=== PATIENT | male | born 1955 | race Caucasian/White ===

== ENCOUNTER 2016-06-28 03:18 | Inpatient (IN) | payer BC, OTHER ==
[2016-06-28] VITALS (16 sets, daily range): BP systolic 87–146; BP diastolic 57–100; PULSE 88–107; RESP 16–22; TEMP 94.6–98.2; O2SAT 95–100
[~2016-06-28] VITALS: Ht 177.8 cm; Wt 88.6 kg
[2016-06-28] MEDS ORDERED: SODIUM CHLOR 0.9% 1000 ML INJ 1,000 ML IV SCH ×2 (03:26→08:03)
[2016-06-28] MEDS ORDERED: SUCCINYLCHOLINE CHLORIDE 200 MG/10 ML VIAL IVP ONE (03:30)
[2016-06-28] MEDS ORDERED: NALOXONE HCL 2 MG/2 ML VIAL IV ONE (03:30)
[2016-06-28] MEDS ORDERED: SODIUM CHLORIDE 0.9% FLUSH 5 ML FLUSH IVF PRN (03:30)
[2016-06-28] MEDS ORDERED: ETOMIDATE 20 MG/10 ML VIAL IVP ONE (03:30)
--- NOTE | 2016-06-28 03:33 | PD ---
HPI Chief Complaint: altered mental status Time Seen by Provider: 03:26 Travel History International Travel<30 days: No Contact w/Intl Traveler<30days: No Traveled to known affect area: No (travel history is unable to be obtained as the patient is unresponsive) History of Present Illness HPI The patient is a 61 year old male who presents to the [facility] emergency department with a history of being found on the side of the road with a GCS of 3. The patient was unresponsive to any type of stimulation. The patient's O2 saturations on room air were 82-83%. The patient had a blood sugar of 131 prior to arrival. The patient's blood pressure was a systolic in the 130s. The patient's respiratory rate was in the mid 20s. The patient's O2 saturation in route to this facility on a nonrebreather mask when up to 98-99%. The patient continues to be unresponsive. IV access was not able to be obtained prior to arrival. The patient was noted to have unequal pupils with a right pupil larger than the left. The patient had no other visible signs of trauma. The patient had an odor of alcohol noted. The patient is unable to provide any other history. [facility] Past Medical History Narrative Medical The patient's electronic medical record was reviewed for his history, however unfortunately, the patient has never been to this facility previously. Past Surgical History Narrative Surgical The patient's past surgical history is unknown. Social History Narrative Social History The patient's social history is unknown. Tobacco Use: No Allergies-Medications (Allergen,Severity, Reaction): Coded Allergies: UNOBTAINABLE (Unverified , 06/28/16) Reported Meds & Prescriptions Reported Meds & Active Scripts Active Active Prescriptions or Reported Medications Unobtainable Narrative Medication The patient's medication history is unknown. Review of Systems ROS Limitations: Unresponsive Neurologic: Positive: Change in Mentation Physical Exam Narrative General: The patient is a well-developed well-nourished male, unresponsive on arrival. The patient is breathing on his own although otherwise he is unresponsive to any stimulation. Head and Neck exam: Head is normocephalic atraumatic. Eyes: The patient's right pupil is proximal a 6 mm, the left pupil is approximately 3 mm. They're both reactive to light. Nose: Midline septum with pink mucous membranes Mouth: Dentition unremarkable. Tacky mucus membranes. Posterior oropharynx is not erythematous. No tonsillar hypertrophy. Uvula midline. Airway patent. Neck: No palpable lymphadenopathy. No nuchal rigidity. No thyromegaly. Cardiovascular: Sinus tachycardia in the low 100s without murmurs, gallops, or rubs. No pulse deficit to the extremities on simultaneous auscultation and palpation of his radial artery. Lungs: Clear to auscultation bilaterally. No wheezes, rhonchi, or rales. Abdomen: Soft, without tenderness to palpation in all 4 quadrants of the abdomen. No guarding, rebound, or rigidity. Normal bowel sounds are audible. Extremities: No clubbing, cyanosis, or edema. 2+ pulses in all 4 extremities. Back: No spinous process tenderness to palpation. No costovertebral angle tenderness to palpation. Neurologic Exam: The patient arrives with a GCS of 3. The patient is unresponsive to any type of stimulation. Skin Exam: No rash noted. Intact skin that is warm and dry. Data Data Last Documented VS Vital Signs Date Time Temp Pulse Resp B/P Pulse Ox O2 Delivery O2 Flow Rate FiO2 06/28/16 06:16 88 16 87/57 96 Ventilator 06/28/16 05:00 96.3 06/28/16 04:27 50 Orders Electrocardiogram (06/28/16 03:26) Alcohol (Ethanol) (06/28/16 03:26) Ammonia (06/28/16 03:26) Complete Blood Count With Diff (06/28/16 03:26) Comprehensive Metabolic Panel (06/28/16 03:26) Creatine Kinase (Cpk) (06/28/16 03:26) Drug Screen, Random Urine (06/28/16 03:26) Prothrombin Time / Inr (Pt) (06/28/16 03:26) Act Partial Throm Time (Ptt) (06/28/16 03:26) Salicylates (Aspirin) (06/28/16 03:26) Troponin I (06/28/16 03:26) Tylenol (Acetaminophen) (06/28/16 03:26) Thyroid Stimulating Hormone (06/28/16 03:26) Urinalysis - C+S If Indicated (06/28/16 03:26) Arterial Blood Gas (Abg) (06/28/16 03:26) Ct Brain W/O Iv Contrast(Rout) (06/28/16 03:26) Blood Glucose (06/28/16 03:26) Ecg Monitoring (06/28/16 03:26) Iv Access Insert/Monitor (06/28/16 03:26) Oximetry (06/28/16 03:26) Naloxone Inj (Narcan Inj) (06/28/16 03:30) Sodium Chloride 0.9% Flush (Ns Flush) (06/28/16 03:30) Sodium Chlor 0.9% 1000 Ml Inj (Ns 1000 M (06/28/16 03:26) Ct Cerv Spine W/O Contrast (06/28/16 ) Chest, Single Ap (06/28/16 03:29) Ng Gastric Tube Insert/Monitor (06/28/16 03:29) Urinary Catheter Insert/Apply (06/28/16 03:29) Etomidate Inj (Amidate Inj) (06/28/16 03:30) Succinylcholine Inj (Quelicin Inj) (06/28/16 03:30) Etomidate Inj (Amidate Inj) (06/28/16 03:53) Urine Culture (06/28/16 03:40) Propofol 1000 Mg/100 Ml Inj (Diprivan 10 (06/28/16 04:15) ^ Infusion (06/28/16 04:08) RASS (06/28/16 04:08) Neurological Rass Scale SARINA.Q2H (06/28/16 04:08) Propofol 1000 Mg/100 Ml Inj (Diprivan 10 (06/28/16 04:08) Cta Thor Abd Aorta W Iv C W3d (06/28/16 ) Lactic Acid Sepsis Protocol (06/28/16 04:48) Blood Culture (06/28/16 04:48) Vancomycin Inj (Vancomycin Inj) (06/28/16 05:00) Piperacil-Tazo 3.375 Gm Premix (Zosyn 3. (06/28/16 05:00) Sodium Chlor 0.9% 1000 Ml Inj (Ns 1000 M (06/28/16 05:00) Sodium Chlor 0.9% 1000 Ml Inj (Ns 1000 M (06/28/16 06:15) Resp Ventilation- Pressure (06/28/16 ) Resp Ventilation- Pressure (06/28/16 ) Admit Order (Ed Use Only) (06/28/16 06:19) Labs Laboratory Tests Test 06/28/16 06/28/16 06/28/16 06/28/16 03:40 03:50 04:30 05:10 White Blood Count 20.0 TH/MM3 Red Blood Count 4.80 MIL/MM3 Hemoglobin 15.2 GM/DL Hematocrit 45.7 % Mean Corpuscular Volume 95.3 FL Mean Corpuscular Hemoglobin 31.6 PG Mean Corpuscular Hemoglobin 33.2 % Concent Red Cell Distribution Width 13.9 % Platelet Count 312 TH/MM3 Mean Platelet Volume 7.9 FL Neutrophils (%) (Auto) 58.3 % Lymphocytes (%) (Auto) 31.2 % Monocytes (%) (Auto) 8.0 % Eosinophils (%) (Auto) 2.2 % Basophils (%) (Auto) 0.3 % Neutrophils # (Auto) 11.7 TH/MM3 Lymphocytes # (Auto) 6.2 TH/MM3 Monocytes # (Auto) 1.6 TH/MM3 Eosinophils # (Auto) 0.4 TH/MM3 Basophils # (Auto) 0.1 TH/MM3 CBC Comment AUTO DIFF Differential Total Cells 100 Counted Neutrophils % (Manual) 57 % Band Neutrophils % 3 % Lymphocytes % 31 % Monocytes % 4 % Eosinophils % 5 % Neutrophils # (Manual) 12.0 TH/MM3 Differential Comment FINAL DIFF MANUAL Atypical Lymphocytes % Platelet Estimate NORMAL Platelet Morphology Comment NORMAL Acanthocytes OCC Keratocytes OCC Prothrombin Time 10.0 SEC Prothromb Time International 0.9 RATIO Ratio Activated Partial 27.5 SEC Thromboplast Time Urine Color LIGHT-YELLOW Urine Turbidity CLEAR Urine pH 5.0 Urine Specific [place] 1.007 Urine Protein NEG mg/dL Urine Glucose (UA) NEG mg/dL Urine Ketones NEG mg/dL Urine Occult Blood NEG Urine Nitrite NEG Urine Bilirubin NEG Urine Urobilinogen LESS THAN 2.0 MG/DL Urine Leukocyte Esterase NEG Urine RBC 1 /hpf Urine WBC LESS THAN 1 /hpf Urine Bacteria RARE /hpf Urine Mucus FEW /lpf Microscopic Urinalysis Comment CATH-CULTURE IND Sodium Level 140 MEQ/L Potassium Level 3.5 MEQ/L Chloride Level 107 MEQ/L Carbon Dioxide Level 20.9 MEQ/L Anion Gap 12 MEQ/L Blood Urea Nitrogen 20 MG/DL Creatinine 0.90 MG/DL Estimat Glomerular Filtration 86 ML/MIN Rate Random Glucose 129 MG/DL Calcium Level 8.2 MG/DL Total Bilirubin 0.2 MG/DL Aspartate Amino Transf 21 U/L (AST/SGOT) Alanine Aminotransferase 39 U/L (ALT/SGPT) Alkaline Phosphatase 127 U/L Total Creatine Kinase 151 U/L Troponin I LESS THAN 0.02 NG/ML Total Protein 8.2 GM/DL Albumin 4.0 GM/DL Thyroid Stimulating Hormone 2.250 uIU/ML 3rd Gen Salicylates Level 3.0 MG/DL Urine Opiates Screen NEG Acetaminophen Level LESS THAN 2.0 MCG/ML Urine Barbiturates Screen NEG Urine Amphetamines Screen NEG Urine Benzodiazepines Screen NEG Urine Cocaine Screen NEG Urine Cannabinoids Screen POS Ethyl Alcohol Level 363 MG/DL Ammonia 23 MCMOL/L Blood Gas Puncture Site RT RADIAL Blood Gas Patient Temperature 98.6 Blood Gas HCO3 21 mmol/L Blood Gas Base Excess -5.3 mmol/L Blood Gas Oxygen Saturation 94 % Arterial Blood pH 7.22 Arterial Blood Partial 53 mmHg Pressure CO2 Arterial Blood Partial 133 mmHG Pressure O2 Arterial Blood Oxygen Content 20.3 Vol % Arterial Blood 1.6 % Carboxyhemoglobin Arterial Blood Methemoglobin 1.9 % Blood Gas Hemoglobin 15.2 G/DL Oxygen Delivery Device VENTILATOR Blood Gas Ventilator Setting Blood Gas Inspired Oxygen 50 % Lactic Acid Level 2.7 mmol/L MDM Medical Decision Making Medical Screen Exam Complete: Yes Emergency Medical Condition: Yes Medical Record Reviewed: Yes Interpretation(s) Last Impressions Chest X-Ray 06/28/16328 Signed Impressions: Service Date/Time: Tuesday, June 28, 2016 04:20 - CONCLUSION: 1. Mild right base atelectasis. Otherwise clear lungs. 2. Appropriate position of the endotracheal tube and nasogastric tube. 3. Tortuous and mildly aneurysmal thoracic aorta. Levy Abbott MD Head CT 06/28/16 0326 Signed Impressions: Service Date/Time: Tuesday, June 28, 2016 03:37 - CONCLUSION: No acute intracranial abnormality demonstrated. Old lacunar infarct of the left basal ganglia. Levy Abbott MD Cervical Spine CT 06/28/16 0000 Signed Impressions: Service Date/Time: Tuesday, June 28, 2016 03:37 - CONCLUSION: 1. No fracture or subluxation of the cervical spine. 2. Degenerative changes at C5/ C6 and C6/C7 as above. 3. 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 Levy Abbott MD Differential Diagnosis Alcohol intoxication, versus postictal state from seizure, versus intracranial trauma, versus cervical spine trauma, versus other substance intoxication, versus metabolic encephalopathy Narrative Course During the course of the patients emergency department visit, the patients history, examination, and differential diagnosis were reviewed with the patient. The patient had IV access obtained and blood work sent for analysis. The patient was placed on a athletic monitor with oximetry and blood pressure monitoring. An EKG was ordered. The patient had a temperature sensing Sierra catheter placed to gravity. The patient's initial temperature was 95. The patient had a CT scan of the brain and CT scan of the C-spine ordered. The patient had an EKG done on arrival. The patient's EKG shows a sinus tachycardia rate of 101, no acute ST segment elevation is noted. QRS duration is 102 ms, QTC 421 ms. The patient was provided 1 L of warmed normal saline. Warm blankets were applied. The patient was given Narcan 2 mg IV. The patient had no response to this. As the patient remained unresponsive. The patient was prepped for RSI to protect his airway. The patient is noted to not have a gag reflex. The patients laboratory studies were reviewed and remarkable for a white count of 20, hemoglobin 15.2, platelets 312 with a normal differential, CMP is remarkable for CO2 of 20.9, BUN 20, GFR of 86, glucose 129, alkaline phosphatase 127, ammonia level XXIII, CPK and troponin I within normal limits, TSH 2.25, PT PTT unremarkable. Urinalysis is unremarkable. Salicylate is 3, acetaminophen less than 2, urine drug screen positive for cannabinoids. Radiology studies were reviewed and remarkable for a chest x-ray that shows a mild right basilar atelectasis, otherwise clear lungs, appropriate position of endotracheal tube in NG tube, tortuous a mildly aneurysmal thoracic aorta noted. CT scan of the brain shows no acute intracranial abnormality, old lacunar infarct in the left basal ganglia. CT scan of the C-spine shows no fracture or subluxation of the cervical spine, degenerative changes at C5-C6 and C6-C7. There is also apparent aneurysmal dilatation of the aortic arch. The patient will have a CT aortogram to further evaluate. The patient meets SIRS criteria, however there is no site or source for infection. I suspect that the patient's hypothermia is related to him being found down by the side of the road on a cold night. The patient will have a lactic acid added to his laboratory studies. The patient was intubated without any difficulty. The patient was placed on propofol for sedation. The patient's case was discussed with Dr. Frazier, the night supervisor who did agree to admit the patient for further evaluation and treatment at this time. The patients results were discussed with the patient, including the plan of care. I explained that further testing and/ or monitoring is indicated based on the patients history, examination, and/ or laboratory findings. Therefore, I recommended admission for additional evaluation. The patient expressed understanding and was agreeable with this plan. The patient was admitted to the hospital in guarded condition and sent to a bed under the care of the night supervisor. Critical Care Narrative Aggregate critical care time was 42 minutes. Time to perform other separately billable procedures was not included in the critical care time. My time did not include minutes spent treating any other patients simultaneously or on activities that did not directly contribute to the patient's treatment. The services I provided to this patient were to treat and/or prevent clinically significant deterioration that could result in: Aspiration, versus respiratory failure, versus hernia vascular collapse. I provided critical care services requiring my management, as noted below: Chart data review, documentation time, medication orders and management, vital sign assessments/reviewing monitor data, ordering and reviewing lab tests, ordering and interpreting/reviewing x-rays and diagnostic studies, care of the patient and discussion of the patient with the admitting physicians. Procedures Procedure Narrative After the risks and benefits were discussed the following procedure was performed: INTUBATION: The patient was put in optimal position for the procedure. Rapid sequence intubation was initiated by me using 20 milligrams of etomidate IV and 100 milligrams of succinyl choline IV. The patient was intubated using a size 4 Doreen blade with an 8 cuffed endotracheal tube. The patient's airway was not noted to be a difficult airway. Tube placement was confirmed by visualization of the tube and balloon passing through the cords, capnometry and subsequent chest x-ray. Breath sounds were equal and well aerated bilaterally postintubation. No breath sounds over stomach. Patient tolerated procedure well. Sepsis Criteria SIRS Criteria (2 or more): Temp > 100.9 or < 96.8, Heart rate over 90, WBC > 78483, < 4000 or > 10% bands Severe Sepsis (+one): Lactate >2 Physician Communication Physician Communication The patient's case was discussed with Dr. Frazier who did agree to admit the patient for continued evaluation and treatment at this time. Diagnosis Primary Impression: Altered mental status Qualified Code: R40.1 - Stupor Additional Impressions: Alcohol intoxication Qualified Code: F10.129 - Alcohol intoxication, with unspecified complication Leukocytosis Qualified Code: D72.829 - Leukocytosis, unspecified type Admitting Information Admitting Physician Requests: Admit Scripts Unable to Obtain Active Prescriptions or Reported Meds Karie Guzmán MD Jun 28, 2016 03:33
[2016-06-28] MEDS ORDERED: ETOMIDATE 40 MG/20 ML VIAL ONE (03:53)
[2016-06-28 04:00] LABS: AUTOMATED NEUTROPHIL # 11.7 TH/MM3 (1.8-7.7); BASOPHIL # 0.1 TH/MM3 (0-0.2); BASOPHIL % 0.3 % (0.0-2.0); EOSINOPHIL # 0.4 TH/MM3 (0-0.4); EOSINOPHIL % 2.2 % (0.0-4.0); HEMATOCRIT 45.7 % (39.0-51.0); LYMPH % 31.2 % (9.0-44.0); LYMPHOCYTE # 6.2 TH/MM3 (1.0-4.8); MEAN CELL VOLUME 95.3 FL (80.0-100.0); MEAN CORPUSCULAR HEMOGLOBIN 31.6 PG (27.0-34.0); MEAN CORPUSCULAR HGB CONC 33.2 % (32.0-36.0); NEUT % 58.3 % (16.0-70.0); PLATELET COUNT 312 TH/MM3 (150-450); RED CELL DISTRIBUTION WIDTH 13.9 % (11.6-17.2)
[2016-06-28 04:01] LABS: BACTERIA, URINE RARE /hpf; BLOOD, URINE NEG (NEG); GLUCOSE,URINE NEG (NEG); KETONE, URINE NEG (NEG); MUCUS URINE FEW /lpf (OCC); NITRITE,URINE NEG (NEG); URINE COLOR LIGHT-YELLOW (YELLW/STRAW)
[2016-06-28 04:02] LABS: COMMENT (UR) CATH-CULTURE IND; CULTURE IF INDICATED CATH CULTURE IND
[2016-06-28 04:03] LABS: AMPHETAMINE, URINE NEG (NEG); BARBITURATES, URINE NEG (NEG); COCAINE, URINE NEG (NEG)
[2016-06-28 04:04] LABS: APTT (PATIENT) 27.5 SEC (24.3-30.1); HEMO FLAGS AUTO DIFF; INTERNATIONAL NORMALIZED RATIO 0.9 RATIO
[2016-06-28] MEDS ORDERED: PROPOFOL 1000 MG/100 ML INJ 100 ML ONE (04:08)
--- NOTE | 2016-06-28 04:15 | RADRPT ---
EXAM DATE/TIME: 06/28/2016 03:37 [facility] COMPARISON: No previous studies available for comparison. INDICATIONS : Found unresponsive. RADIATION DOSE: 44.94 CTDIvol (mGy) MEDICAL HISTORY : Non-responsive. SURGICAL HISTORY : Non-responsive. ENCOUNTER: Initial ACUITY: 1 day PAIN SCALE: Non-responsive LOCATION: cranial TECHNIQUE: Multiple contiguous axial images were obtained of the head. Using automated exposure control and adj ustment of the mA and/or kV according to patient size, radiation dose was kept as low as reasonably a chievable to obtain optimal diagnostic quality images. FINDINGS: CEREBRUM: The ventricles are normal for age. No evidence of midline shift, mass lesion, hemorrhage or acute in farction. No extra-axial fluid collections are seen. There is an old 8 x 16 mm lacunar infarct of th e left basal ganglia. POSTERIOR FOSSA: The cerebellum and brainstem are intact. The 4th ventricle is midline. The cerebellopontine angle i s unremarkable. EXTRACRANIAL: The visualized portion of the orbits is intact. SKULL: The calvaria is intact. No evidence of skull fracture. CONCLUSION: No acute intracranial abnormality demonstrated. Old lacunar infarct of the left basal ganglia. Levy Abbott MD on June 28, 2016 at 4:13 Board Certified Radiologist. This report was verified electronically.
--- NOTE | 2016-06-28 04:20 | RADRPT ---
EXAM DATE/TIME: 06/28/2016 03:37 [facility] COMPARISON: No previous studies available for comparison. INDICATIONS : Found unresponsive. RADIATION DOSE: 21.41 CTDIvol (mGy) MEDICAL HISTORY : Non-responsive. SURGICAL HISTORY : Non-responsive. ENCOUNTER: Initial ACUITY: 1 day PAIN SCALE: Non-responsive LOCATION: neck TECHNIQUE: Volumetric scanning of the cervical spine was performed. Multiplanar reconstructions in the sagittal, coronal and oblique axial planes were performed. Using automated exposure control and adjustment o f the mA and/or kV according to patient size, radiation dose was kept as low as reasonably achievable to obtain optimal diagnostic quality images. FINDINGS: The cervical spine alignment is normal. Vertebral bodies have normal height. There is moderate to severe disc space narrowing with uncovertebral and facet osteoarthritis at C5/C6 and C6/C7 with right greater the left foraminal encroachment at both levels, especially C6 or C7.. S lightly milder changes are seen at C7/T1. No significant spinal stenosis demonstrated. Visualized portions of the lung apices are clear but the initial tree trimmer helper radiograph suggests aneurysmal enlargement of the thoracic aortic arch.. CONCLUSION: 1. No fracture or subluxation of the cervical spine. 2. Degenerative changes at C5/C6 and C6/C7 as above. 3. 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 Levy Abbott MD on June 28, 2016 at 4:15 Board Certified Radiologist. This report was verified electronically.
[2016-06-28] MEDS: PROPOFOL 1000 MG/100 ML INJ 100 ML IV SCH ×2 (04:22→08:13)
[2016-06-28 04:25] LABS: ALT (GPT) 39 U/L (12-78); ANION GAP 12 MEQ/L (5-15); AST (GOT) 21 U/L (15-37); BICARBONATE 20.9 MEQ/L (21.0-32.0); BLOOD UREA NITROGEN 20 MG/DL (7-18); CHLORIDE 107 MEQ/L (98-107); GLOMERULAR FILTRATION RATE 86 ML/MIN (>89); POTASSIUM 3.5 MEQ/L (3.5-5.1); SODIUM (NA) 140 MEQ/L (136-145)
--- NOTE | 2016-06-28 04:29 | RADRPT ---
EXAM DATE/TIME: 06/28/2016 04:20 [facility] COMPARISON: No previous studies available for comparison. INDICATIONS : Post intubation. MEDICAL HISTORY : Unobtainable. SURGICAL HISTORY : Unobtainable. ENCOUNTER: Initial ACUITY: 1 day PAIN SCORE: Non-responsive. LOCATION: Bilateral chest FINDINGS: There is trace atelectasis of the right base. Lungs are otherwise clear. No pleural effusion. No pneu mothorax. Heart size within normal limits. Thoracic aorta is tortuous and with slight aneurysmal enlargement of the aortic arch. Endotracheal tube tip is about 4 cm above the ildefonso. There is a nasogastric tube coursing into the s tomach. CONCLUSION: 1. Mild right base atelectasis. Otherwise clear lungs. 2. Appropriate position of the endotracheal tube and nasogastric tube. 3. Tortuous and mildly aneurysmal thoracic aorta. Levy Abbott MD on June 28, 2016 at 4:27 Board Certified Radiologist. This report was verified electronically.
[2016-06-28 04:34] LABS: ALKALINE PHOSPHATASE 127 U/L (45-117); CREATINE KINASE 151 U/L (39-308); TOTAL BILIRUBIN ADULT 0.2 MG/DL (0.2-1.0)
[2016-06-28 04:36] LABS: ACETAMINOPHEN LESS THAN 2.0 MCG/ML (10.0-30.0)
[2016-06-28 04:49] LABS: BANDS 3 % (0-6); EOSINOPHILS 5 % (0-4); POLYS (SEG NEUTROPHILS) 57 % (16-70); SCAN/DIFF FINAL DIFF MANUAL; WBC DIFF SAMPLE 100
[2016-06-28 04:50] LABS: ACANTHOCYTES OCC (NORMAL); KERATOCYTES OCC (NORMAL); PLATELET ESTIMATE SMEAR NORMAL (NORMAL); PLATELET MORPHOLOGY NORMAL (NORMAL)
[2016-06-28] MEDS ORDERED: SODIUM CHLOR 0.9% 1000 ML INJ 1,000 ML IV ONE ×2 (05:00→06:15)
[2016-06-28] MEDS ORDERED: PIPERACIL-TAZO 3.375 GM PREMIX 50 ML IV ONE (05:00)
[2016-06-28] MEDS ORDERED: VANCOMYCIN INJ 1,000 MG in SODIUM CHLOR 0.9% 250 ML INJ 250 ML IV ONE (05:00)
[2016-06-28 05:34] LABS: BLOOD GAS BASE EXCESS -5.3 mmol/L (-2-2); BLOOD GAS CARBOXYHEMOGLOBIN 1.6 % (0-4); BLOOD GAS HCO3 21 mmol/L (22-26); BLOOD GAS METHEMOGLOBIN 1.9 % (0-2); BLOOD GAS O2 HGB SATURATION 94 % (90-100); BLOOD GAS OXYGEN CONTENT 20.3 Vol % (12.0-20.0); BLOOD GAS PCO2 53 mmHg (38-42); BLOOD GAS PO2 133 mmHG (61-120); BLOOD GAS TOTAL HGB 15.2 G/DL (12.0-16.0); CRITICAL VALUE YES; OXYGEN DEVICE VENTILATOR; TEMP CORR TO 98.6
[2016-06-28 05:35] LABS: DRAW SITE RT RADIAL; FIO2 50 %; NUMBER OF ARTERIAL PUNCTURES 1; STAT YES; ULNAR PULSE PRESENT
[2016-06-28 07:14] LABS: LACTIC ACID GHOST NOT REPORTABLE
[2016-06-28] MEDS ORDERED: IOHEXOL 350 MG/ML 10 ML VIAL (for RAD DIAG) IV ONE (07:53)
[2016-06-28] MEDS ORDERED: ACETAMINOPHEN 325 MG TAB PO PRN (08:15)
[2016-06-28] MEDS ORDERED: RESP: ALBUTEROL 2.5 MG/IPRATROPIUM 0.5 MG NEB (PRN) INH (08:15)
[2016-06-28] MEDS ORDERED: SENNOSIDES 8.6 MG TAB PO PRN (08:15)
[2016-06-28] MEDS ORDERED: MISCELLANEOUS NURSING INFORMATION XX SCH (08:15)
[2016-06-28] MEDS ORDERED: SODIUM CHLORIDE 0.9% FLUSH 5 ML FLUSH IV FLUSH PRN (08:15)
[2016-06-28] MEDS ORDERED: ONDANSETRON HCL 4 MG/2 ML VIAL IV PRN (08:15)
[2016-06-28] MEDS ORDERED: PROPOFOL 1000 MG/100 ML INJ 100 ML IV SCH (08:15)
[2016-06-28] MEDS ORDERED: CHLORHEXIDINE GLUCONATE 2 % 1 PACK (2 CLOTHS) TOP PRN (08:15)
[2016-06-28] MEDS ORDERED: fentaNYL DRIP 250 ML IV SCH ×2 (08:15→17:00)
--- NOTE | 2016-06-28 08:17 | HHI.HP ---
[facility] Service Critical Care Medicine Primary Care Physician Unknown Admission Diagnosis AMS, Alcohol intoxication, hypothermia Diagnosis: (1) Acute respiratory failure Diagnosis: Principal (2) Leukocytosis Diagnosis: Principal (3) Alcohol intoxication Diagnosis: Principal (4) Altered mental status Diagnosis: Principal (5) Hypothermia, initial encounter Diagnosis: Principal (6) Degenerative disc disease, cervical Diagnosis: Principal (7) History of CVA (cerebrovascular accident) Diagnosis: Principal (8) Lactic acidosis Diagnosis: Principal (9) Tetrahydrocannabinol (THC) use disorder, mild, abuse Diagnosis: Principal Chief Complaint: Unresponsive/hypothermia Travel History International Travel<30 Days: No Contact w/Intl Traveler <30 Da: No Traveled to Known Affected Are: No (travel history is unable to be obtained as the patient is unresponsive) Sepsis Criteria SIRS Criteria (2 or more): WBC > 48388, < 4000 or > 10% bands Criteria Outcome: Meets SIRS criteria History of Present Illness 61-year-old male. Date of admission 06/28/2016. Past medical history includes prior CVA left basal ganglia. Unknown other history. Patient not been to the son the past. Alteration was obtained discussed with Dr. Guzmán. No family available. He presented to respiratory after being found down with a GCS of 3. Saturations on room air 82%. Place a nonrebreather with sats of 99% . Noted to have an escort with the right pupil much larger left pupil. Left pupil is reactive. Noted to have EKG shows sinus tachycardia with no ST-T elevation. Patient received 1 L normal saline in ED with warm blankets for hypothermia. Received 2 g Narcan with no response. Patient received etomidate and succinylcholine was emergently intubated. Head CT revealed old left basal ganglia CVA. There have leukocytosis 20,000. EtOH level CCCLXIII. Positive THC. Otherwise unremarkable labs. CT head revealed degenerative disc disease of C-spine. Chest x-ray revealed residual aorta. CTA aorta is been ordered. Patient is currently more responsive at the present time. Positive gag. Moves all 4 x-rays spontaneous he. Downward toes. Review of Systems ROS Limitations: Intubated Past Family Social History Allergies: Coded Allergies: UNOBTAINABLE (Unverified , 06/28/16) Past Medical History Left basal ganglia CVA EtOH use THC use Past Surgical History Unknown Reported Medications Unknown Active Ordered Medications Unknown Family History Unknown Social History Positive THC. Positive EtOH. Physical Exam Vital Signs Vital Signs Date Time Temp Pulse Resp B/P Pulse Ox O2 Delivery O2 Flow Rate FiO2 06/28/16 07:45 99 100 06/28/16 06:16 88 16 87/57 96 Ventilator 06/28/16 05:00 96.3 90 16 90/58 96 06/28/16 04:33 96.1 101 16 115/68 97 Ventilator 06/28/16 04:27 50 06/28/16 04:26 95.9 100 146/100 99 06/28/16 03:58 99 50 06/28/16 03:31 94.6 107 22 136/82 100 Physical Exam GENERAL: 59-year-old male, critically ill currently resting in bed in no acute distress SKIN: Warm and dry. HEAD: Atraumatic. Normocephalic. EYES: Pupils 5 mm and essentially fixed. Left pupil 2 mm and reacted 1 mm.. No scleral icterus. No injection or drainage. ENT: No nasal bleeding or discharge. Mucous membranes pink and moist. Orotracheally intubated NECK: Trachea midline. No JVD. CARDIOVASCULAR: Regular rate and rhythm. RESPIRATORY: Clear to auscultation. Breath sounds equal bilaterally. GASTROINTESTINAL: Abdomen soft, non-tender, nondistended. Active bowel sounds are appreciated MUSCULOSKELETAL: Extremities with trace lower extremity edema. No obvious deformities. NEUROLOGICAL: Left pupil reacts. Right essentially fixed or sluggish. Positive gag. Withdraws to pain in bilateral upper and lower extremities. Downward toes. Laboratory Laboratory Tests Test 06/28/16 06/28/16 06/28/16 06/28/16 03:40 03:50 04:30 05:10 White Blood Count 20.0 Red Blood Count 4.80 Hemoglobin 15.2 Hematocrit 45.7 Mean Corpuscular Volume 95.3 Mean Corpuscular Hemoglobin 31.6 Mean Corpuscular Hemoglobin 33.2 Concent Red Cell Distribution Width 13.9 Platelet Count 312 Mean Platelet Volume 7.9 Neutrophils (%) (Auto) 58.3 Lymphocytes (%) (Auto) 31.2 Monocytes (%) (Auto) 8.0 Eosinophils (%) (Auto) 2.2 Basophils (%) (Auto) 0.3 Neutrophils # (Auto) 11.7 Lymphocytes # (Auto) 6.2 Monocytes # (Auto) 1.6 Eosinophils # (Auto) 0.4 Basophils # (Auto) 0.1 CBC Comment AUTO DIFF Differential Total Cells 100 Counted Neutrophils % (Manual) 57 Band Neutrophils % 3 Lymphocytes % 31 Monocytes % 4 Eosinophils % 5 Neutrophils # (Manual) 12.0 Differential Comment FINAL DIFF MANUAL Atypical Lymphocytes Platelet Estimate NORMAL Platelet Morphology Comment NORMAL Acanthocytes OCC Keratocytes OCC Prothrombin Time 10.0 Prothromb Time International 0.9 Ratio Activated Partial 27.5 Thromboplast Time Urine Color LIGHT-YELLOW Urine Turbidity CLEAR Urine pH 5.0 Urine Specific Hart 1.007 Urine Protein NEG Urine Glucose (UA) NEG Urine Ketones NEG Urine Occult Blood NEG Urine Nitrite NEG Urine Bilirubin NEG Urine Urobilinogen LESS THAN 2.0 Urine Leukocyte Esterase NEG Urine RBC 1 Urine WBC LESS THAN 1 Urine Bacteria RARE Urine Mucus FEW Microscopic Urinalysis Comment CATH-CULTURE IND Sodium Level 140 Potassium Level 3.5 Chloride Level 107 Carbon Dioxide Level 20.9 Anion Gap 12 Blood Urea Nitrogen 20 Creatinine 0.90 Estimat Glomerular Filtration 86 Rate Random Glucose 129 Calcium Level 8.2 Total Bilirubin 0.2 Aspartate Amino Transf 21 (AST/SGOT) Alanine Aminotransferase 39 (ALT/SGPT) Alkaline Phosphatase 127 Total Creatine Kinase 151 Troponin I LESS THAN 0.02 Total Protein 8.2 Albumin 4.0 Thyroid Stimulating Hormone 2.250 3rd Gen Salicylates Level 3.0 Urine Opiates Screen NEG Acetaminophen Level LESS THAN 2.0 Urine Barbiturates Screen NEG Urine Amphetamines Screen NEG Urine Benzodiazepines Screen NEG Urine Cocaine Screen NEG Urine Cannabinoids Screen POS Ethyl Alcohol Level 363 Ammonia 23 Blood Gas Puncture Site RT RADIAL Blood Gas Patient Temperature 98.6 Blood Gas HCO3 21 Blood Gas Base Excess -5.3 Blood Gas Oxygen Saturation 94 Arterial Blood pH 7.22 Arterial Blood Partial 53 Pressure CO2 Arterial Blood Partial 133 Pressure O2 Arterial Blood Oxygen Content 20.3 Arterial Blood 1.6 Carboxyhemoglobin Arterial Blood Methemoglobin 1.9 Blood Gas Hemoglobin 15.2 Oxygen Delivery Device VENTILATOR Blood Gas Ventilator Setting Blood Gas Inspired Oxygen 50 Lactic Acid Level 2.7 Date/Time Procedure Status Source Growth 06/28/16 05:10 Aerobic Blood Culture Received Blood Peripheral Pending 06/28/16 05:10 Anaerobic Blood Culture Received Blood Peripheral Pending 06/28/16 03:40 Urine Culture Received Urine Catheterized Urine Pending Result Diagram: 06/28/16 0340 06/28/16 0340 Imaging Last Impressions Chest X-Ray 06/28/16 0329 Signed Impressions: Service Date/Time: Tuesday, June 28, 2016 04:20 - CONCLUSION: 1. Mild right base atelectasis. Otherwise clear lungs. 2. Appropriate position of the endotracheal tube and nasogastric tube. 3. Tortuous and mildly aneurysmal thoracic aorta. Levy Abbott MD Head CT 06/28/16 0326 Signed Impressions: Service Date/Time: Tuesday, June 28, 2016 03:37 - CONCLUSION: No acute intracranial abnormality demonstrated. Old lacunar infarct of the left basal ganglia. Levy Abbott MD Cervical Spine CT 06/28/16 0000 Signed Impressions: Service Date/Time: Tuesday, June 28, 2016 03:37 - CONCLUSION: 1. No fracture or subluxation of the cervical spine. 2. Degenerative changes at C5/ C6 and C6/C7 as above. 3. 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 Levy Abbott MD Assessment and Plan Assessment and Plan Neuro/Psych: Acute toxic metabolic encephalopathy EtOH THC History of left basal ganglia CVA Patient is currently on propofol/fentanyl drips for sedation/analgesia while intubated Goal of SAFIA is -[address] head revealed 8 x 16 mm left basal ganglia CVA/low. EEG has been ordered. Vitamin bag daily 3 days for EtOH. Include thiamine, multivitamin and folate Monitor for DTs. EEG ordered. Check MRI of brain if indicated CV: Lactic acidosis Patient is currently on normal saline at 84 cc an hour. Currently not requiring edematous and or vasopressors. Initial EKG shows no acute ST elevation. Initial troponin negative. Serial lactates until cleared Resp: Acute respiratory failure PRVC 16/550/0.9/5/50 Ventilator bundle Bronchodilator therapy every 6 hours as needed Spontaneous breathing trials when clinically indicated Recheck ABG Chest x-ray revealed tortuous aorta however no acute cardiopulmonary findings GI: Patient is currently nothing by mouth OG tube is in place Protonix for GI prophylaxis Colace/as needed Senokot for bowel regimen : Sierra catheter for accurate I's and O's in a critically ill patient Endo: Hypothermia - likely environmental exposure Sliding scale insulin if indicated. Goal to maintain euglycemia TSH normal. Check cortisol with hypothermia. Check for infection Renal: Creatinine currently within normal limits. Monitor urine output closely. Accurate I's and O's Recheck BMP in a.m. Heme: Leukocytosis Monitor trends. Likely leukemoid type reaction. Hx CBC in AM. ID: Monitor for infection. Check blood cultures, sputum, urine and influenza FEN: Replace electrolytes as clinically indicated MSK: DDD C-spine CT neck revealed degenerative disc disease C5/C6 and C6/7. Access - Utilize peripheral IV. Central line if indicated Prophylaxis - GI - Protonix - DVT - SCD/heparin Critical Care: The total critical care time was 75 minutes. Time to perform other separately billable procedures was not included in the critical care time. Code Status Full code Discussed Condition With ED physician Dr. Guzmán. ED RN. Care plan discussed all questions answered. No family available. Problem Qualifiers (1) Acute respiratory failure: Qualified Code: J96.00 - Acute respiratory failure, unspecified whether with hypoxia or hypercapnia (2) Leukocytosis: Qualified Code: D72.829 - Leukocytosis, unspecified type (3) Alcohol intoxication: Qualified Code: F10.129 - Alcohol intoxication, with unspecified complication (4) Altered mental status: Qualified Code: R40.1 - George Abad MD Jun 28, 2016 08:16
[2016-06-28] MEDS ORDERED: SODIUM CHLORIDE 0.9% FLUSH 5 ML FLUSH IV FLUSH SCH (09:00)
[2016-06-28] MEDS ORDERED: PANTOPRAZOLE SODIUM 40 MG VIAL IV SCH (09:00)
[2016-06-28] MEDS ORDERED: MULTIVITAMIN INJ 10 ML, THIAMINE INJ 100 MG, FOLIC ACID INJ 1 MG in SODIUM CHLORID 0.9%... IV SCH (09:00)
[2016-06-28] MEDS ORDERED: DOCUSATE SODIUM 100 MG CAP PO SCH (09:00)
[2016-06-28] MEDS ORDERED: HEPARIN SODIUM - SQ 10,000 UNITS/ML VIAL SQ SCH (09:00)
[2016-06-28] MEDS: RESP: ALBUTEROL 2.5 MG/IPRATROPIUM 0.5 MG NEB (SCH) INH ×2 (09:18→16:00)
--- NOTE | 2016-06-28 09:42 | RADRPT ---
EXAM DATE/TIME: 06/28/2016 07:28 [place] COMPARISON: No previous studies available for comparison. INDICATIONS : Found unresponsive IV CONTRAST: 75 cc Omnipaque 350 (iohexol) IV RADIATION DOSE: 11.14 CTDIvol (mGy) MEDICAL HISTORY : Non-responsive. SURGICAL HISTORY : Non-responsive. ENCOUNTER: Initial ACUITY: 1 day PAIN SCALE: Non-responsive LOCATION: abdomen TECHNIQUE: Volumetric scanning was performed using a multi-row detector CT scanner. The data was post processed with a variety of visualization algorithms including full volume maximum intensity projection, multi -planar sliding thin slab reformation, curved planar reformation, and surface rendering techniques. Using automated exposure control and adjustment of the mA and/or kV according to patient size, radiat ion dose was kept as low as reasonably achievable to obtain optimal diagnostic quality images. FINDINGS: LUNGS: There is no consolidation or pneumothorax. No concerning pulmonary nodule is visualized. No pleural fluid is present. MEDIASTINUM: No abnormally enlarged lymph nodes by CT criteria. No axillary or hilar abnormalities are identified. ABDOMEN: The liver and spleen are free of focal defects. The gallbladder and pancreas demonstrate no abnormali ty. The adrenal glands are normal. The kidneys demonstrate no evidence of solid renal mass or hydrone phrosis. No free fluid or abdominal masses are identified. No para-aortic adenopathy is seen. PELVIS: No evidence of free fluid or pelvic mass. No abnormally enlarged inguinal or retroperitoneal lymph no galileo are present. The bladder is decompressed by Sierra catheter.. THORACIC AORTA: The thoracic aortic root is normal with normal branching of the great vessels. There is no evidence of aneurysm or dissection. ABDOMINAL AORTA: The aorta is normal in caliber without aneurysm or dissection. The aorta is mildly tortuous. A few ti ny calcified plaques are noted. The renal arteries are patent bilaterally. The proximal celiac and superior mesenteric arteries are patent and normal in diameter. PELVIC VESSELS: The internal iliac and external iliac vessels are patent without aneurysm or stenosis. CONCLUSION: Normal examination for a patient of this age. Andrew Carranza MD on June 28, 2016 at 9:36 Board Certified Radiologist. This report was verified electronically.
[2016-06-28 09:53] LABS: BACTERIA, URINE RARE /hpf; BLOOD, URINE MOD (NEG); GLUCOSE,URINE NEG (NEG); HYALINE CAST, URINE 7 /lpf (RARE); KETONE, URINE NEG (NEG); MUCUS URINE FEW /lpf (OCC); NITRITE,URINE NEG (NEG); PH, URINE 5.5 (5.0-8.5); SQUAMOUS EPITHELIAL CELL URINE <1 /hpf (0-5); URINE COLOR YELLOW (YELLW/STRAW)
[2016-06-28 09:55] LABS: COMMENT (UR) CATH-CULTURE IND; CULTURE IF INDICATED CATH CULTURE IND
[2016-06-28] MEDS: ARTIFICIAL TEARS OPTH SOLN 15 ML BTL EACH EYE SCH ×2 (10:54→14:23)
--- NOTE | 2016-06-28 13:31 | EKG ---
Date Performed: 06/28/2016 Time Performed: 04:26:04 PTAGE: 61 years EKG: SINUS TACHYCARDIA ABNORMAL RHYTHM ECG INTERPRETATION BASED ON A DEFAULT AGE OF 40 YEARS NO PREVIOUS TRACING DOCTOR: Eli Means Interpretating Date/Time 06/28/2016 13:29:45
--- NOTE | 2016-06-28 15:29 | MG ---
cc: SAUNDRA MCINTYRE M.D. Lab No: [id number] Date: 06/28/2016 Age: 61 Sex: M Race: __ TECHNIQUE 17 channel EEG. DESCRIPTION The background rhythm is generally slow and the delta frequency roughly 3-4 Hz. The amplitude is about 10-20 microvolts. There is theta rhythm later in the tracing as well at roughly 6 Hz. Photic stimulation results in a poor driving response. There are no lateralizing features. There are no epileptic features seen. INTERPRETATION Abnormal study consistent with a moderate encephalopathy. MD MURPHY Ortiz/RASHAD /3:16 PM /3:25 PM
[2016-06-28 15:37] LABS: MAGNESIUM 2.1 MG/DL (1.5-2.5)
[2016-06-28 15:40] LABS: CREATINE KINASE 248 U/L (39-308)
[2016-06-28] MEDS ORDERED: MIDAZOLAM 100 MG/ML INJ 100 ML IV SCH (17:00)
[2016-06-28] MEDS ORDERED: CHLORHEXIDINE 0.12% (ORAL KIT) 15 ML CUP MT SCH (20:00)
[2016-06-29] MEDS ORDERED: CHLORHEXIDINE GLUCONATE 2 % 1 PACK (2 CLOTHS) TOP SCH (04:00)
== END 2016-06-28 21:20 | disposition left against medical advice (07) | DRG 208 ==
LOC: NEPE 03:18 → NEDA 06:21 → HIME 15:45
PROVIDERS: ADMIT Internal Medicine Critical Care Medicine; ATTEND Internal Medicine Critical Care Medicine
PROC: 0BH17EZ Insertion of Endotracheal Airway into Trachea, Via Natural or Artificial Opening (ICD-10-PCS; principal; 2016-06-28)
PROC: 5A1935Z Respiratory Ventilation, Less than 24 Consecutive Hours (ICD-10-PCS; 2016-06-28)
PROC: 4A133B3 Monitoring of Arterial Pressure, Pulmonary, Percutaneous Approach (ICD-10-PCS; 2016-06-28)
DX: J96.00 Acute respiratory failure, unspecified whether with hypoxia or hypercapnia (principal); T68.XXXA Hypothermia, initial encounter; D72.829 Elevated white blood cell count, unspecified; F10.129 Alcohol abuse with intoxication, unspecified; X31.XXXA Exposure to excessive natural cold, initial encounter; F12.90 Cannabis use, unspecified, uncomplicated; Z86.73 Personal history of transient ischemic attack (TIA), and cerebral infarction without residual deficits; R40.2430 Glasgow coma scale score 3-8, unspecified time
CPT/HCPCS: 31500; 36600; 51702; 70450; 71010; 71275; 72125; 74174; 80053; 80307; 80320; 80329; 81001; 82140; 82533; 82550; 82805; 83605; 83735; 84100; 84443; 84484; 85007; 85027; 85610; 85730; 87040; 87086; 87641; 93005; 94002; 94664; 95819; 96361; 96365; 96366; 96368; 96375; C9113; G0480; J0330; J1644; J2310; J2543; J3370; J3411; J7030; J7040; J7050; Q9967